=== PATIENT | male | born 1930 | race African-American/Black ===

== ENCOUNTER 2016-05-01 11:10 | Day surgery (SDC) | payer MEDICARE ==
[~2016-05-01] VITALS: Ht 177.8 cm; Wt 76.4 kg
[~2016-05-01 11:10] MED LIST: ACETAMINOPHEN325 MG PO; AMITIZA24 MCG PO; COREG 3.1253.125 MG PO; FEXOFENADINE HC60 MG PO; FLOMAX0.4 MG PO; LEVSIN/ANASP0.125 MG SL; PLAVIX75 MG PO; PRAVACHOL20 MG PO; PROSCAR5 MG PO; PROTONIX40 MG PO; ROBAXIN-750750 MG PO; TUMS500 MG PO
[2016-05-01 12:13] LABS: HEMATOCRIT 29.8 % (42.0-54.0); HEMOGLOBIN 9.3 g/dL (13.5-17.5); MCH 22.5 pg (26.0-34.0); MCHC 31.2 g/dL (31.0-37.0); MCV 72.2 fL (80.0-100.0); MEAN PLATELET VOLUME 11.1 fL (7.4-10.4); PLATELET COUNT 232 10x3/uL (130-400); RBC 4.13 10x6/uL (4.20-6.10); RDW 17.1 % (11.5-14.5); WBC 2.9 10x3/uL (4.8-10.8)
[2016-05-01 12:23] LABS: CALC OSMOLALITY 278 mosm/kg (275-300); CALCIUM 8.4 mg/dL (8.5-10.1); CARBON DIOXIDE 28.9 mmol/L (21.0-32.0); CHLORIDE - SERUM 103 mmol/L (98-107); GLUCOSE 95 mg/dL (74-106); POTASSIUM - SERUM 3.4 mmol/L (3.5-5.1); SODIUM 139 mmol/L (136-145); UREA NITROGEN 14 mg/dL (7-18); eGFR NON AFRICAN AMERICAN 75 mL/min (90-120)
[2016-05-01 12:49] LABS: EOSINOPHILS 4 % (0-7); LYMPHOCYTES 52 % (15-50); MONOCYTES 8 % (2-11); NEUTROPHILS 35 % (40-80); PLATELET ESTIMATE NORMAL
[2016-05-01 12:50] LABS: ANISOCYTOSIS OCC; ELLIPTOCYTES 1+; POIKILOCYTOSIS 1+; SCHISTOCYTES OCC; TARGET CELLS OCC
[2016-05-01] MEDS ORDERED: NORVASC5 MG PO (13:20)
[2016-05-01] MEDS ORDERED: K-TAB10 MEQ PO (13:20)
[2016-05-01] MEDS ORDERED: FUROSEMIDE20 MG PO (13:21)
[2016-05-01 13:28] VITALS: BP 152/80; Ht 177.8 cm; Wt 76.4 kg
--- NOTE | 2016-05-01 18:08 | NUR ---
1630 IV DC WITH CATHER TIP INTACT
--- NOTE | 2016-05-13 12:04 | OP ---
PATIENT NAME: LIT POSEY MEDICAL RECORD: [id number] :29 LOCATION:[facility] ADMISSION DATE: SURGEON: KIANA RADFORD DO DATE OF OPERATION: 05/01/2016 PROCEDURE: EGD. INDICATIONS FOR PROCEDURE: Abdominal pain, anemia, heartburn, nausea, and melena. MEDICATIONS: Per TIVA anesthesia. FINDINGS: Informed consent was given. The patient was made comfortable with propofol by slow IV push. Once reaching an adequate level of sedation, the patient was placed in his left lateral side. The endoscope was then advanced under direct visualization through the mouth to the second portion of the duodenum. The upper, middle and distal thirds of the esophagus appeared normal. The GE junction was widely patent and there was a minor break in the mucosal Z line indicating some reflux esophagitis. Upon entrance into the stomach, there was noted to be some ulcerations and some obvious gastritis. The entire stomach appeared extremely edematous. There were a few polyps, a few of which were ulcerated at the base. The main ulceration was noted right below the cardia upon entrance into the stomach and was approximately 2-3 cm in length x 1 cm wide. There were multiple random biopsies taken throughout the entire stomach as well as the ulcerated site and the ulcerated polyp. Total biopsies were approximately 10. The scope had difficulty advancing down to the antrum and the pylorus as the stomach was so edematous that it was difficult to insufflate for visualization. It was able to pass through the pylorus into the bulb and second portion of the duodenum which appeared somewhat atrophic, but fairly normal. The scope was then withdrawn from the patient. The patient tolerated the procedure well and there were no complications. IMPRESSION: Multiple abnormalities in the stomach involving gastric ulcers, polyps, which some are ulcerated at the base. There was also atrophic and edematous gastritis. He also had evidence of reflux esophagitis. PLAN AND RECOMMENDATIONS: 1. Await results of biopsy specimens. 2. Continue current medication regimen, which includes Nexium 40 mg daily. 3. We will give a script for Carafate suspension 1 gram per 10 mL taking 10 mL by mouth 4 times daily for 2 weeks. TRANSINT:[id number] Voice Confirmation ID: [id number] DOCUMENT ID: [id number] KIANA RADFORD DO at 1204 CC: [id number] DICTATION DATE: 05/01/16 1558 CLERICAL GRADER: 05/02/16 0010 [facility] 05/01/16 [facility] [address] [place] [address]
== END 2016-05-01 17:15 | disposition home or self-care (01) ==
LOC: D.OPS 11:10
PROVIDERS: Anesthesiology
DX: K92.2 Gastrointestinal hemorrhage, unspecified (principal); I10 Essential (primary) hypertension; K21.9 Gastro-esophageal reflux disease without esophagitis; M19.90 Unspecified osteoarthritis, unspecified site; K63.5 Polyp of colon

== ENCOUNTER 2017-08-10 14:12 | Emergency (ER) | payer MEDICARE ==
[~2017-08-10] VITALS: Ht 177.8 cm; Wt 68.2 kg
[~2017-08-10 14:12] MED LIST changes: +FUROSEMIDE20 MG PO; +K-TAB10 MEQ PO; +NORVASC5 MG PO
[2017-08-10 14:21] VITALS: BP 123/74; Ht 177.8 cm; Wt 68.2 kg
[2017-08-10 14:49] LABS: BASOPHILS 0.4 % (0-2); EOSINOPHILS 2.5 % (0-7); HEMATOCRIT 37.1 % (42.0-54.0); HEMOGLOBIN 11.7 g/dL (13.5-17.5); MCH 21.9 pg (26.0-34.0); MCHC 31.5 g/dL (31.0-37.0); MCV 69.5 fL (80.0-100.0); MONOCYTES 13.4 % (2-11); NEUTROPHILS 52.7 % (40-80); RBC 5.34 10x6/uL (4.20-6.10); RDW 19.8 % (11.5-14.5); WBC 4.8 10x3/uL (4.8-10.8)
[2017-08-10 14:51] LABS: PLATELET COUNT 324 10x3/uL (130-400)
[2017-08-10 15:04] LABS: ALBUMIN 2.9 g/dL (3.4-5.0); ALKALINE PHOSPHATASE 31 U/L (46-116); ALT (SGPT) 11 U/L (10-68); BILIRUBIN - TOTAL 0.53 mg/dL (0.2-1.3); CALC OSMOLALITY 276 mosm/kg (275-300); CALCIUM 9.1 mg/dL (8.5-10.1); CARBON DIOXIDE 32.4 mmol/L (21.0-32.0); CHLORIDE - SERUM 98 mmol/L (98-107); GLUCOSE 84 mg/dL (74-106); POTASSIUM - SERUM 3.2 mmol/L (3.5-5.1); PROTEIN - SERUM 7.2 g/dL (6.4-8.2); SODIUM 138 mmol/L (136-145); UREA NITROGEN 18 mg/dL (7-18); eGFR NON AFRICAN AMERICAN 75 mL/min (90-120)
[2017-08-10] MEDS ORDERED: TRANSDERM-SCO1 PATCH TRANSDERM (16:58)
[2017-08-10] MEDS ORDERED: CLARITIN 10 MG10 MG PO (16:58)
== END 2017-08-10 17:15 | disposition home or self-care (01) ==
LOC: D.ER 14:12
PROVIDERS: Family Medicine
DX: J30.9 Allergic rhinitis, unspecified (principal)

== ENCOUNTER 2017-08-12 15:47 | Inpatient (IN) | payer MEDICARE ==
[~2017-08-12] VITALS: Ht 177.8 cm; Wt 72.6 kg
--- NOTE | ~2017-08-12 | OP ---
PATIENT NAME: LIT POSEY MEDICAL RECORD: [id number] :29 LOCATION:D.M2 D.2134 ADMISSION DATE:08/14/17 SURGEON: VINCENT GUTIERREZ MD DATE OF OPERATION: 08/26/2017 PREOPERATIVE DIAGNOSES: 1. Gastric adenocarcinoma. 2. Esophageal dysphagia secondary to gastric adenocarcinoma. 3. GERD. 4. Debilitation. POSTOPERATIVE DIAGNOSES: 1. Gastric adenocarcinoma. 2. Esophageal dysphagia secondary to gastric adenocarcinoma. 3. GERD. 4. Debilitation. PROCEDURE: Laparoscopic J-tube placement. SURGEON: Vincent Gutierrez MD FUR SCRAPER: Malena Torres APRN REPORT OF PROCEDURE: The patient's abdomen was prepped and draped in sterile fashion. A Veress needle was inserted in the left upper quadrant and the abdomen was insufflated. A 5-mm Visiport trocar was inserted in the right lateral abdomen. The Veress needle was inspected and there was no sign of any injury to bowel or surrounding structures. Another 5-mm trocar was then placed just to the left of midline in the epigastrium and a final one was placed just to the right of midline in the suprapubic region. We inspected the patient's abdomen including liver, stomach, and abdominal wall. There were no signs of any metastatic lesions present throughout the liver. No signs of carcinomatosis. The liver itself appeared to be normal. The abdominal wall was smooth. The overlying bowel and colon appeared to be normal with no signs of any mesenteric metastatic disease. The stomach was firm and distended, consistent with known diagnosis of gastric adenocarcinoma. Most of this distention appeared to be on the upper half of the stomach. We then elevated the transverse colon and found the ligament of Treitz. We then followed the small bowel down to about 20-30 cm and a small opening was made in the small bowel. We then brought a 16-Mozambican gastrostomy tube through the anterior abdominal wall, placed it through the enterotomy, and insufflated the balloon. We then sutured down the small bowel around the opening in a pursestring fashion using a 3-0 silk. The enterotomy tube was then sutured down in a Witzel fashion using interrupted 3-0 silks times 2. We then pulled this up to the anterior abdominal wall and sutured the small bowel to the anterior abdominal wall with interrupted 3-0 silks times 3. The bowel appeared to lie appropriately up against the abdominal wall and we were able to flush this with water easily and there was no sign of any leakage. We then sutured the catheter down on the skin level using interrupted 3-0 nylons. At this point, the ports and insufflation were then removed. The skin incision sites were infused with a total of 10 mL of 0.25% Marcaine with epinephrine and then closed with subcutaneous 5-0 Monocryl. COMPLICATIONS: None. OPERATIVE REPORT [id number] LIT POSEY CONDITION: Stable. ANESTHESIA: General endotracheal and local. BLOOD LOSS: Minimal. TRANSINT:[id number] Voice Confirmation ID: [id number] DOCUMENT ID: [id number] VINCENT GUTIERREZ MD at 1418 CC: JIL BARNEY MD and KIANA RADFORD DO [id number] DICTATION DATE: 08/26/17 175 ETCH OPERATOR SEMICONDUCTOR WAFERS: 08/26/17 1809 ADM IN [facility] [address] [place] [address]
[~2017-08-12 15:47] MED LIST changes: +CLARITIN 10 MG10 MG PO; +TRANSDERM-SCO1 PATCH TRANSDERM
[2017-08-12 17:10] LABS: BASOPHILS 0.2 % (0-2); EOSINOPHILS 1.9 % (0-7); HEMATOCRIT 38.8 % (42.0-54.0); HEMOGLOBIN 12.3 g/dL (13.5-17.5); LYMPHOCYTES 31.6 % (15-50); MCH 22.1 pg (26.0-34.0); MCHC 31.7 g/dL (31.0-37.0); MCV 69.7 fL (80.0-100.0); MONOCYTES 12.5 % (2-11); NEUTROPHILS 53.8 % (40-80); PLATELET COUNT 339 10x3/uL (130-400); RBC 5.57 10x6/uL (4.20-6.10); RDW 19.5 % (11.5-14.5); WBC 5.1 10x3/uL (4.8-10.8)
[2017-08-12 17:31] LABS: ALBUMIN 2.9 g/dL (3.4-5.0); ALKALINE PHOSPHATASE 30 U/L (46-116); ALT (SGPT) 10 U/L (10-68); BILIRUBIN - TOTAL 0.65 mg/dL (0.2-1.3); CALC OSMOLALITY 275 mosm/kg (275-300); CARBON DIOXIDE 30.2 mmol/L (21.0-32.0); CHLORIDE - SERUM 95 mmol/L (98-107); GLUCOSE 89 mg/dL (74-106); POTASSIUM - SERUM 3.1 mmol/L (3.5-5.1); PROTEIN - SERUM 7.1 g/dL (6.4-8.2); SODIUM 137 mmol/L (136-145); UREA NITROGEN 22 mg/dL (7-18); eGFR NON AFRICAN AMERICAN 75 mL/min (90-120)
[2017-08-12 17:39] LABS: AMYLASE - SERUM 81 U/L (25-115); LIPASE 126 U/L (73-393)
[2017-08-12 17:43] LABS: TROPONIN-I < 0.017 ng/mL (0.000-0.060)
[2017-08-12] MEDS ORDERED: CARAFATE1 G/10 ML PO (21:48)
[2017-08-12] MEDS ORDERED: DEXILANT60 MG PO (21:54)
[2017-08-12] MEDS ORDERED: REGLAN5 MG PO (21:55)
[2017-08-12] MEDS ORDERED: MIRALAX17 GM PO (21:56)
[2017-08-12] MEDS ORDERED: ZANTAC300 MG PO (21:57)
[2017-08-13 04:00] VITALS: BP 109/77
[2017-08-13 04:34] VITALS: BP 112/73; BMI 23.0
[2017-08-13 06:46] LABS: BASOPHILS 0.2 % (0-2); CALC OSMOLALITY 282 mosm/kg (275-300); CALCIUM 8.1 mg/dL (8.5-10.1); CARBON DIOXIDE 27.7 mmol/L (21.0-32.0); CHLORIDE - SERUM 103 mmol/L (98-107); CREATININE - SERUM 0.9 mg/dL (0.6-1.3); EOSINOPHILS 3.1 % (0-7); GLUCOSE 79 mg/dL (74-106); HEMATOCRIT 31.7 % (42.0-54.0); HEMOGLOBIN 9.9 g/dL (13.5-17.5); LYMPHOCYTES 31.4 % (15-50); MCH 21.8 pg (26.0-34.0); MCHC 31.2 g/dL (31.0-37.0); MCV 69.7 fL (80.0-100.0); MONOCYTES 14.7 % (2-11); NEUTROPHILS 50.6 % (40-80); POTASSIUM - SERUM 3.1 mmol/L (3.5-5.1); RBC 4.55 10x6/uL (4.20-6.10); RDW 19.5 % (11.5-14.5); SODIUM 141 mmol/L (136-145); UREA NITROGEN 20 mg/dL (7-18); WBC 4.1 10x3/uL (4.8-10.8); eGFR NON AFRICAN AMERICAN 84 mL/min (90-120)
[2017-08-13 06:47] LABS: PLATELET COUNT 267 10x3/uL (130-400)
[2017-08-13 08:16] VITALS: BP 113/68
[2017-08-13 11:57] VITALS: BP 118/75
[2017-08-13 15:21] VITALS: BMI 22.9
[2017-08-13 15:37] VITALS: BP 118/69
[2017-08-13 20:10] VITALS: BP 147/81
[2017-08-13 21:36] LABS: APPEARANCE CLEAR (CLEAR); BILIRUBIN NEGATIVE (NEGATIVE); COLOR DK YELLOW (YELLOW); GLUCOSE NEGATIVE (NEGATIVE); KETONE MODERATE mg/dL (NEGATIVE); NITRITE NEGATIVE (NEGATIVE); PROTEIN NEGATIVE (NEGATIVE); SPECIFIC GRAVITY 1.025 (1.005-1.020); UROBILINOGEN NORMAL (NORMAL)
[2017-08-13 21:39] LABS: BACTERIA MODERATE /hpf (NONE SEEN); EPITHELIAL CELLS OCC /hpf (0-5); HYALINE CAST RARE /lpf (NONE SEEN); MUCUS >1+ /lpf (NONE SEEN); WHITE CELLS - URINE 0-5 /hpf (0-5)
[2017-08-14 00:37] VITALS: BP 112/64
[2017-08-14 04:50] VITALS: BP 138/80
[2017-08-14 06:48] LABS: BASOPHILS 0.8 % (0-2); HEMATOCRIT 31.4 % (42.0-54.0); HEMOGLOBIN 9.7 g/dL (13.5-17.5); LYMPHOCYTES 34.3 % (15-50); MCH 21.6 pg (26.0-34.0); MCHC 30.9 g/dL (31.0-37.0); MCV 69.8 fL (80.0-100.0); MONOCYTES 15.3 % (2-11); NEUTROPHILS 45.6 % (40-80)
[2017-08-14 06:51] LABS: PLATELET COUNT 213 10x3/uL (130-400)
[2017-08-14 07:22] LABS: ALBUMIN 2.4 g/dL (3.4-5.0); ALKALINE PHOSPHATASE 25 U/L (46-116); ALT (SGPT) 10 U/L (10-68); BILIRUBIN - TOTAL 0.57 mg/dL (0.2-1.3); CALCIUM 8.3 mg/dL (8.5-10.1); CHLORIDE - SERUM 107 mmol/L (98-107); CREATININE - SERUM 0.8 mg/dL (0.6-1.3); GLUCOSE 74 mg/dL (74-106); POTASSIUM - SERUM 3.7 mmol/L (3.5-5.1); PROTEIN - SERUM 5.8 g/dL (6.4-8.2); SODIUM 144 mmol/L (136-145); eGFR NON AFRICAN AMERICAN > 90 mL/min (90-120)
[2017-08-14 07:24] LABS: CALC OSMOLALITY 286 mosm/kg (275-300); UREA NITROGEN 14 mg/dL (7-18)
[2017-08-14 08:07] VITALS: BP 134/79
[2017-08-14 15:44] VITALS: BP 157/87
[2017-08-14 21:24] VITALS: BP 145/87
[2017-08-15 01:47] VITALS: BP 136/83
[2017-08-15 05:16] LABS: BASOPHILS 1.2 % (0-2); EOSINOPHILS 5.7 % (0-7); HEMATOCRIT 31.8 % (42.0-54.0); HEMOGLOBIN 9.7 g/dL (13.5-17.5); LYMPHOCYTES 32.1 % (15-50); MCH 21.7 pg (26.0-34.0); MCHC 30.5 g/dL (31.0-37.0); MCV 71.1 fL (80.0-100.0); RBC 4.47 10x6/uL (4.20-6.10); RDW 20.1 % (11.5-14.5); WBC 3.4 10x3/uL (4.8-10.8)
[2017-08-15 05:22] VITALS: BP 160/87
[2017-08-15 05:24] LABS: PLATELET COUNT 262 10x3/uL (130-400)
[2017-08-15 05:45] LABS: ALBUMIN 2.4 g/dL (3.4-5.0); ALKALINE PHOSPHATASE 23 U/L (46-116); BILIRUBIN - TOTAL 0.55 mg/dL (0.2-1.3); CALCIUM 7.9 mg/dL (8.5-10.1); CHLORIDE - SERUM 107 mmol/L (98-107); CREATININE - SERUM 0.7 mg/dL (0.6-1.3); POTASSIUM - SERUM 3.8 mmol/L (3.5-5.1); PROTEIN - SERUM 5.5 g/dL (6.4-8.2); SODIUM 145 mmol/L (136-145); eGFR NON AFRICAN AMERICAN > 90 mL/min (90-120)
[2017-08-15 05:46] LABS: ALT (SGPT) 7 U/L (10-68); CALC OSMOLALITY 285 mosm/kg (275-300); GLUCOSE 65 mg/dL (74-106); UREA NITROGEN 9 mg/dL (7-18)
[2017-08-15 08:25] VITALS: BP 131/56
[2017-08-15 11:02] VITALS: BP 136/80
[2017-08-15 16:13] VITALS: BP 135/76
[2017-08-15 20:00] VITALS: BP 148/79
[2017-08-16 04:00] VITALS: BP 123/69
[2017-08-16 07:32] LABS: BASOPHILS 0.1 % (0-2); EOSINOPHILS 0.3 % (0-7); HEMATOCRIT 30.8 % (42.0-54.0); HEMOGLOBIN 9.4 g/dL (13.5-17.5); IMMATURE GRANULOCYTES 0.4 % (0-5); LYMPHOCYTES 7.5 % (15-50); MCH 21.5 pg (26.0-34.0); MCHC 30.5 g/dL (31.0-37.0); MCV 70.5 fL (80.0-100.0); MONOCYTES 6.1 % (2-11); NEUTROPHILS 85.6 % (40-80); PLATELET COUNT 250 10x3/uL (130-400); RBC 4.37 10x6/uL (4.20-6.10); RDW 20.3 % (11.5-14.5)
[2017-08-16 07:54] LABS: WBC 14.5 10x3/uL (4.8-10.8)
[2017-08-16 07:56] LABS: ALKALINE PHOSPHATASE 24 U/L (46-116); ALT (SGPT) 6 U/L (10-68); BILIRUBIN - TOTAL 0.58 mg/dL (0.2-1.3); CALC OSMOLALITY 278 mosm/kg (275-300); CALCIUM 8.2 mg/dL (8.5-10.1); CARBON DIOXIDE 23.6 mmol/L (21.0-32.0); CHLORIDE - SERUM 107 mmol/L (98-107); CREATININE - SERUM 0.7 mg/dL (0.6-1.3); GLUCOSE 72 mg/dL (74-106); POTASSIUM - SERUM 3.8 mmol/L (3.5-5.1); PROTEIN - SERUM 5.3 g/dL (6.4-8.2); SODIUM 141 mmol/L (136-145); UREA NITROGEN 9 mg/dL (7-18); eGFR NON AFRICAN AMERICAN > 90 mL/min (90-120)
[2017-08-16 08:00] VITALS: BP 126/70
[2017-08-16 08:45] VITALS: BP 114/68
[2017-08-16 11:12] VITALS: BP 107/60
[2017-08-17 04:00] VITALS: BP 153/85
[2017-08-17 07:00] LABS: BASOPHILS 0.2 % (0-2); EOSINOPHILS 1.5 % (0-7); HEMOGLOBIN 10.1 g/dL (13.5-17.5); IMMATURE GRANULOCYTES 0.5 % (0-5); LYMPHOCYTES 8.4 % (15-50); MCH 22.1 pg (26.0-34.0); MCHC 31.6 g/dL (31.0-37.0); MCV 69.9 fL (80.0-100.0); MONOCYTES 8.6 % (2-11); NEUTROPHILS 80.8 % (40-80); RBC 4.58 10x6/uL (4.20-6.10); RDW 20.3 % (11.5-14.5)
[2017-08-17 07:03] LABS: PLATELET COUNT 182 10x3/uL (130-400); WBC 8.8 10x3/uL (4.8-10.8)
[2017-08-17 07:54] LABS: ALKALINE PHOSPHATASE 28 U/L (46-116); BILIRUBIN - TOTAL 0.47 mg/dL (0.2-1.3); CHLORIDE - SERUM 105 mmol/L (98-107); CREATININE - SERUM 0.8 mg/dL (0.6-1.3); POTASSIUM - SERUM 3.9 mmol/L (3.5-5.1); PROTEIN - SERUM 5.4 g/dL (6.4-8.2); SODIUM 139 mmol/L (136-145); UREA NITROGEN 11 mg/dL (7-18); eGFR NON AFRICAN AMERICAN > 90 mL/min (90-120)
[2017-08-17 07:55] LABS: ALT (SGPT) 8 U/L (10-68); CALC OSMOLALITY 278 mosm/kg (275-300); CARBON DIOXIDE 29.6 mmol/L (21.0-32.0); GLUCOSE 129 mg/dL (74-106)
[2017-08-17 08:35] VITALS: BP 141/82
[2017-08-17 11:55] VITALS: BP 125/77
[2017-08-17 15:47] VITALS: BP 132/76
[2017-08-17 20:00] VITALS: BP 130/78
[2017-08-18 04:00] VITALS: BP 132/77; BP 177/87
[2017-08-18 06:35] LABS: BASOPHILS 0.2 % (0-2); EOSINOPHILS 2.1 % (0-7); HEMATOCRIT 32.9 % (42.0-54.0); HEMOGLOBIN 10.3 g/dL (13.5-17.5); IMMATURE GRANULOCYTES 0.2 % (0-5); LYMPHOCYTES 19.5 % (15-50); MCH 21.8 pg (26.0-34.0); MCHC 31.3 g/dL (31.0-37.0); MCV 69.7 fL (80.0-100.0); MONOCYTES 14.3 % (2-11); NEUTROPHILS 63.7 % (40-80); RBC 4.72 10x6/uL (4.20-6.10)
[2017-08-18 06:39] LABS: PLATELET COUNT 234 10x3/uL (130-400); WBC 5.7 10x3/uL (4.8-10.8)
[2017-08-18 07:22] LABS: ALBUMIN 1.9 g/dL (3.4-5.0); ALKALINE PHOSPHATASE 28 U/L (46-116); ALT (SGPT) 8 U/L (10-68); BILIRUBIN - TOTAL 0.41 mg/dL (0.2-1.3); CALC OSMOLALITY 274 mosm/kg (275-300); CALCIUM 7.8 mg/dL (8.5-10.1); CARBON DIOXIDE 30.5 mmol/L (21.0-32.0); CHLORIDE - SERUM 102 mmol/L (98-107); CREATININE - SERUM 0.7 mg/dL (0.6-1.3); GLUCOSE 118 mg/dL (74-106); POTASSIUM - SERUM 3.7 mmol/L (3.5-5.1); PROTEIN - SERUM 5.4 g/dL (6.4-8.2); SODIUM 137 mmol/L (136-145); UREA NITROGEN 12 mg/dL (7-18); eGFR NON AFRICAN AMERICAN > 90 mL/min (90-120)
[2017-08-18 08:29] VITALS: BP 135/81
[2017-08-18 11:45] VITALS: BP 117/74
[2017-08-18 15:49] VITALS: BP 106/69
[2017-08-18 20:00] VITALS: BP 127/80
[2017-08-19] VITALS: BP 121/70
[2017-08-19 04:00] VITALS: BP 131/75
[2017-08-19 09:06] VITALS: BP 127/74
[2017-08-19 13:26] VITALS: BP 137/79
[2017-08-19 17:31] VITALS: BP 136/73
[2017-08-19 21:05] VITALS: BP 150/72
[2017-08-20 01:36] VITALS: BP 113/69
[2017-08-20 06:09] VITALS: BP 129/68
[2017-08-20 06:31] LABS: HEMOGLOBIN 10.6 g/dL (13.5-17.5); LYMPHOCYTES 28.5 % (15-50); MCH 22.5 pg (26.0-34.0); MCHC 31.2 g/dL (31.0-37.0); NEUTROPHILS 50.5 % (40-80); RBC 4.72 10x6/uL (4.20-6.10); RDW 22.7 % (11.5-14.5)
[2017-08-20 06:33] LABS: PLATELET COUNT 146 10x3/uL (130-400); WBC 3.3 10x3/uL (4.8-10.8)
[2017-08-20 06:47] LABS: CALC OSMOLALITY 269 mosm/kg (275-300); CALCIUM 7.6 mg/dL (8.5-10.1); CHLORIDE - SERUM 100 mmol/L (98-107); CREATININE - SERUM 0.6 mg/dL (0.6-1.3); GLUCOSE 102 mg/dL (74-106); POTASSIUM - SERUM 3.7 mmol/L (3.5-5.1); SODIUM 135 mmol/L (136-145); UREA NITROGEN 13 mg/dL (7-18); eGFR NON AFRICAN AMERICAN > 90 mL/min (90-120)
[2017-08-20 09:08] VITALS: BP 136/74
[2017-08-20 12:38] VITALS: BP 138/73
[2017-08-20 13:47] VITALS: Ht 177.8 cm; Wt 72.6 kg
[2017-08-20 16:46] VITALS: BP 142/74
[2017-08-20 20:41] VITALS: BP 142/90
[2017-08-21 06:04] VITALS: BP 145/82
[2017-08-21 06:51] LABS: HEMATOCRIT 32.2 % (42.0-54.0); MCH 21.6 pg (26.0-34.0); MCHC 31.1 g/dL (31.0-37.0); RBC 4.62 10x6/uL (4.20-6.10); WBC 3.9 10x3/uL (4.8-10.8)
[2017-08-21 07:00] LABS: MCV 69.7 fL (80.0-100.0); PLATELET COUNT 274 10x3/uL (130-400)
[2017-08-21 07:08] LABS: % SATURATION 13 % (15-55); IRON 25 ug/dl (35-150); TOTAL IRON BIND CAPACITY 191 ug/dl (260-445); UNSAT IRON BIND CAPACITY 166 ug/dl (150-375)
[2017-08-21 07:19] LABS: CALC OSMOLALITY 270 mosm/kg (275-300); CALCIUM 7.9 mg/dL (8.5-10.1); CHLORIDE - SERUM 99 mmol/L (98-107); GLUCOSE 109 mg/dL (74-106); SODIUM 135 mmol/L (136-145); UREA NITROGEN 12 mg/dL (7-18)
[2017-08-21 07:23] LABS: CREATININE - SERUM 0.8 mg/dL (0.6-1.3); POTASSIUM - SERUM 4.5 mmol/L (3.5-5.1); eGFR NON AFRICAN AMERICAN > 90 mL/min (90-120)
[2017-08-21 07:53] VITALS: BP 141/83
[2017-08-21 07:55] LABS: EOSINOPHILS 3 % (0-7); LYMPHOCYTES 14 % (15-50); MONOCYTES 14 % (2-11); NEUTROPHILS 60 % (40-80)
[2017-08-21 07:56] LABS: PLATELET ESTIMATE NORMAL; PLATELET MORPHOLOGY GIANT PLTS PRESENT
[2017-08-21 11:00] VITALS: BP 132/74
[2017-08-21 16:30] VITALS: BP 143/78
[2017-08-21 20:35] VITALS: BP 139/81
[2017-08-22 00:21] VITALS: BP 142/76
[2017-08-22 05:07] VITALS: BP 149/66
[2017-08-22 06:04] LABS: BASOPHILS 0.1 % (0-2); EOSINOPHILS 0.1 % (0-7); HEMATOCRIT 31.7 % (42.0-54.0); IMMATURE GRANULOCYTES 0.4 % (0-5); LYMPHOCYTES 5.6 % (15-50); MCH 21.9 pg (26.0-34.0); MCHC 31.5 g/dL (31.0-37.0); MCV 69.4 fL (80.0-100.0); MONOCYTES 7.7 % (2-11); NEUTROPHILS 86.1 % (40-80); PLATELET COUNT 262 10x3/uL (130-400); RBC 4.57 10x6/uL (4.20-6.10); RDW 19.8 % (11.5-14.5)
[2017-08-22 06:13] LABS: WBC 13.6 10x3/uL (4.8-10.8)
[2017-08-22 06:29] LABS: CALC OSMOLALITY 265 mosm/kg (275-300); CHLORIDE - SERUM 97 mmol/L (98-107); CREATININE - SERUM 0.8 mg/dL (0.6-1.3); GLUCOSE 109 mg/dL (74-106); POTASSIUM - SERUM 4.1 mmol/L (3.5-5.1); SODIUM 133 mmol/L (136-145); UREA NITROGEN 11 mg/dL (7-18); eGFR NON AFRICAN AMERICAN > 90 mL/min (90-120)
[2017-08-22 08:45] VITALS: BP 163/89
[2017-08-22 12:10] VITALS: BP 142/76
[2017-08-22 15:54] VITALS: BP 141/75
[2017-08-22 21:43] VITALS: BP 148/79
[2017-08-23 03:03] VITALS: BP 158/83
[2017-08-23 06:01] VITALS: BP 142/83
[2017-08-23 08:13] VITALS: BP 157/79
[2017-08-23 08:14] LABS: BASOPHILS 0.1 % (0-2); EOSINOPHILS 0.1 % (0-7); HEMATOCRIT 31.3 % (42.0-54.0); HEMOGLOBIN 10.1 g/dL (13.5-17.5); IMMATURE GRANULOCYTES 0.5 % (0-5); LYMPHOCYTES 5.7 % (15-50); MCH 22.1 pg (26.0-34.0); MCHC 32.3 g/dL (31.0-37.0); MCV 68.5 fL (80.0-100.0); MONOCYTES 11.3 % (2-11); NEUTROPHILS 82.3 % (40-80); PLATELET COUNT 286 10x3/uL (130-400); RBC 4.57 10x6/uL (4.20-6.10); RDW 19.9 % (11.5-14.5)
[2017-08-23 08:15] LABS: WBC 8.7 10x3/uL (4.8-10.8)
[2017-08-23 08:42] LABS: CALC OSMOLALITY 265 mosm/kg (275-300); CALCIUM 8.4 mg/dL (8.5-10.1); CARBON DIOXIDE 31.9 mmol/L (21.0-32.0); CHLORIDE - SERUM 96 mmol/L (98-107); CREATININE - SERUM 0.8 mg/dL (0.6-1.3); GLUCOSE 118 mg/dL (74-106); SODIUM 132 mmol/L (136-145); UREA NITROGEN 13 mg/dL (7-18); eGFR NON AFRICAN AMERICAN > 90 mL/min (90-120)
[2017-08-23 08:47] LABS: POTASSIUM - SERUM 3.2 mmol/L (3.5-5.1)
[2017-08-23 20:30] VITALS: BP 152/85
[2017-08-24 00:30] VITALS: BP 144/74
[2017-08-24 04:30] VITALS: BP 148/77
[2017-08-24 05:31] LABS: BASOPHILS 0.1 % (0-2); EOSINOPHILS 0.1 % (0-7); HEMATOCRIT 32.6 % (42.0-54.0); HEMOGLOBIN 10.7 g/dL (13.5-17.5); IMMATURE GRANULOCYTES 0.4 % (0-5); LYMPHOCYTES 7.1 % (15-50); MCH 22.4 pg (26.0-34.0); MCHC 32.8 g/dL (31.0-37.0); MCV 68.3 fL (80.0-100.0); MONOCYTES 8.9 % (2-11); NEUTROPHILS 83.4 % (40-80); PLATELET COUNT 309 10x3/uL (130-400); RBC 4.77 10x6/uL (4.20-6.10)
[2017-08-24 05:37] LABS: WBC 11.6 10x3/uL (4.8-10.8)
[2017-08-24 05:55] LABS: CALC OSMOLALITY 265 mosm/kg (275-300); CALCIUM 8.4 mg/dL (8.5-10.1); CARBON DIOXIDE 31.2 mmol/L (21.0-32.0); CHLORIDE - SERUM 95 mmol/L (98-107); CREATININE - SERUM 0.7 mg/dL (0.6-1.3); GLUCOSE 106 mg/dL (74-106); POTASSIUM - SERUM 3.2 mmol/L (3.5-5.1); SODIUM 133 mmol/L (136-145); UREA NITROGEN 12 mg/dL (7-18); eGFR NON AFRICAN AMERICAN > 90 mL/min (90-120)
[2017-08-24 09:13] VITALS: BP 145/79
[2017-08-24 12:02] VITALS: BP 172/89
[2017-08-24 15:42] VITALS: BP 142/79
[2017-08-25 00:02] VITALS: BP 142/73
[2017-08-25 06:07] VITALS: BP 127/87
[2017-08-25 11:23] VITALS: BP 154/81
[2017-08-25 15:09] VITALS: BP 149/79
[2017-08-25 20:52] VITALS: BP 171/79
[2017-08-26 01:42] VITALS: BP 148/83
[2017-08-26 05:48] LABS: BASOPHILS 0.1 % (0-2); EOSINOPHILS 0.7 % (0-7); HEMATOCRIT 31.4 % (42.0-54.0); IMMATURE GRANULOCYTES 0.3 % (0-5); LYMPHOCYTES 15.3 % (15-50); MCH 21.7 pg (26.0-34.0); MCHC 31.8 g/dL (31.0-37.0); MCV 68.3 fL (80.0-100.0); MONOCYTES 11.5 % (2-11); NEUTROPHILS 72.1 % (40-80); PLATELET COUNT 328 10x3/uL (130-400); WBC 6.7 10x3/uL (4.8-10.8)
[2017-08-26 06:10] LABS: CALC OSMOLALITY 267 mosm/kg (275-300); CALCIUM 8.1 mg/dL (8.5-10.1); CARBON DIOXIDE 31.3 mmol/L (21.0-32.0); CHLORIDE - SERUM 97 mmol/L (98-107); CREATININE - SERUM 0.7 mg/dL (0.6-1.3); GLUCOSE 78 mg/dL (74-106); POTASSIUM - SERUM 3.3 mmol/L (3.5-5.1); SODIUM 135 mmol/L (136-145); UREA NITROGEN 11 mg/dL (7-18); eGFR NON AFRICAN AMERICAN > 90 mL/min (90-120)
[2017-08-26 06:13] VITALS: BP 151/79
[2017-08-26 08:17] VITALS: BP 143/72
[2017-08-26 14:10] VITALS: BP 142/90
[2017-08-26 16:12] VITALS: BP 142/90
[2017-08-26 20:25] VITALS: BP 133/70
[2017-08-27 01:16] VITALS: BP 156/80
[2017-08-27 04:30] VITALS: BP 131/73
[2017-08-27 08:01] VITALS: BP 136/70
[2017-08-27 09:17] LABS: OVA + PARASITE EXAM Final report (())
[2017-08-27 11:21] VITALS: BP 139/79
[2017-08-27 15:33] VITALS: BP 136/83
[2017-08-27 20:57] VITALS: BP 119/86
[2017-08-28 01:26] VITALS: BP 131/84
[2017-08-28 04:00] VITALS: BP 128/75
[2017-08-28 08:30] VITALS: BP 135/76
[2017-08-28 12:01] VITALS: BP 137/87
[2017-08-28 16:14] VITALS: BP 154/95
[2017-08-28 20:00] VITALS: BP 145/97
[2017-08-29] VITALS: BP 155/87
[2017-08-29 04:00] VITALS: BP 146/84
[2017-08-29 07:59] VITALS: BP 119/77
[2017-08-29 11:06] VITALS: BP 123/72
[2017-08-29 15:06] VITALS: BP 124/78
[2017-08-29 20:00] VITALS: BP 132/89
[2017-08-30] VITALS: BP 155/87
[2017-08-30 04:00] VITALS: BP 159/90
[2017-08-30 08:43] VITALS: BP 132/72
[2017-08-30 11:19] VITALS: BP 138/73
[2017-08-30 15:02] LABS: BASOPHILS 0.3 % (0-2); EOSINOPHILS 0.3 % (0-7); HEMATOCRIT 27.9 % (42.0-54.0); HEMOGLOBIN 9.3 g/dL (13.5-17.5); IMMATURE GRANULOCYTES 0.5 % (0-5); LYMPHOCYTES 9.5 % (15-50); MCH 22.5 pg (26.0-34.0); MCHC 33.3 g/dL (31.0-37.0); MCV 67.4 fL (80.0-100.0); MONOCYTES 12.8 % (2-11); NEUTROPHILS 76.6 % (40-80); PLATELET COUNT 315 10x3/uL (130-400); RBC 4.14 10x6/uL (4.20-6.10); RDW 19.7 % (11.5-14.5); WBC 6.6 10x3/uL (4.8-10.8)
[2017-08-30 15:27] VITALS: BP 141/81
[2017-08-30 15:40] LABS: ALBUMIN 1.9 g/dL (3.4-5.0); ALKALINE PHOSPHATASE 38 U/L (46-116); ALT (SGPT) 18 U/L (10-68); BILIRUBIN - TOTAL 0.59 mg/dL (0.2-1.3); CALC OSMOLALITY 265 mosm/kg (275-300); CALCIUM 7.8 mg/dL (8.5-10.1); CARBON DIOXIDE 33.5 mmol/L (21.0-32.0); CHLORIDE - SERUM 96 mmol/L (98-107); CREATININE - SERUM 0.7 mg/dL (0.6-1.3); GLUCOSE 103 mg/dL (74-106); PROTEIN - SERUM 5.3 g/dL (6.4-8.2); SODIUM 132 mmol/L (136-145); UREA NITROGEN 16 mg/dL (7-18); eGFR NON AFRICAN AMERICAN > 90 mL/min (90-120)
[2017-08-30 16:17] LABS: APPEARANCE SLT CLOUDY (CLEAR); COLOR AMBER (YELLOW)
[2017-08-30 16:18] LABS: BILIRUBIN 1+ (NEGATIVE); GLUCOSE NEGATIVE (NEGATIVE); KETONE NEGATIVE (NEGATIVE); NITRITE NEGATIVE (NEGATIVE); PROTEIN TRACE mg/dL (NEGATIVE); WHITE CELLS - URINE 0-5 /hpf (0-5)
[2017-08-30 16:19] LABS: BACTERIA MODERATE /hpf (NONE SEEN)
[2017-08-30 16:20] LABS: MUCUS <1+ /lpf (NONE SEEN)
[2017-08-30 20:00] VITALS: BP 134/81
[2017-08-31 04:00] VITALS: BP 121/84
[2017-08-31 08:26] LABS: BASOPHILS 0.3 % (0-2); EOSINOPHILS 0.5 % (0-7); HEMATOCRIT 29.7 % (42.0-54.0); HEMOGLOBIN 9.9 g/dL (13.5-17.5); IMMATURE GRANULOCYTES 0.8 % (0-5); LYMPHOCYTES 6.2 % (15-50); MCH 22.4 pg (26.0-34.0); MCHC 33.3 g/dL (31.0-37.0); MCV 67.2 fL (80.0-100.0); MONOCYTES 1.3 % (2-11); NEUTROPHILS 90.9 % (40-80); PLATELET COUNT 230 10x3/uL (130-400); RBC 4.42 10x6/uL (4.20-6.10); RDW 19.9 % (11.5-14.5); WBC 3.9 10x3/uL (4.8-10.8)
[2017-08-31 08:38] LABS: ALBUMIN 1.8 g/dL (3.4-5.0); ALKALINE PHOSPHATASE 40 U/L (46-116); ALT (SGPT) 20 U/L (10-68); BILIRUBIN - TOTAL 0.78 mg/dL (0.2-1.3); CALC OSMOLALITY 261 mosm/kg (275-300); CALCIUM 7.7 mg/dL (8.5-10.1); CARBON DIOXIDE 30.3 mmol/L (21.0-32.0); CHLORIDE - SERUM 95 mmol/L (98-107); GLUCOSE 97 mg/dL (74-106); PROTEIN - SERUM 5.8 g/dL (6.4-8.2); SODIUM 130 mmol/L (136-145); UREA NITROGEN 15 mg/dL (7-18)
[2017-08-31 08:41] LABS: CREATININE - SERUM 0.9 mg/dL (0.6-1.3); POTASSIUM - SERUM 3.2 mmol/L (3.5-5.1); eGFR NON AFRICAN AMERICAN 84 mL/min (90-120)
[2017-08-31 08:47] VITALS: BP 154/66
[2017-08-31 17:26] VITALS: BP 99/58
[2017-08-31 20:00] VITALS: BP 106/62
[2017-09-01] VITALS: BP 70/40
[2017-09-01 03:43] LABS: BASOPHILS 0.1 % (0-2); EOSINOPHILS 0.1 % (0-7); HEMOGLOBIN 8.4 g/dL (13.5-17.5); IMMATURE GRANULOCYTES 0.3 % (0-5); LYMPHOCYTES 4.9 % (15-50); MCH 22.2 pg (26.0-34.0); MCHC 33.6 g/dL (31.0-37.0); MCV 66.1 fL (80.0-100.0); MONOCYTES 3.9 % (2-11); NEUTROPHILS 90.7 % (40-80); PLATELET COUNT 171 10x3/uL (130-400); RBC 3.78 10x6/uL (4.20-6.10); RDW 20.3 % (11.5-14.5)
[2017-09-01 03:44] LABS: ANION GAP 12.8 mmol/L (8-16); BILIRUBIN - TOTAL 1.08 mg/dL (0.2-1.3); CARBON DIOXIDE 23.2 mmol/L (21.0-32.0); PROTEIN - SERUM 4.6 g/dL (6.4-8.2)
[2017-09-01 03:46] LABS: ALBUMIN 1.3 g/dL (3.4-5.0); CALCIUM 6.9 mg/dL (8.5-10.1); CREATININE - SERUM 1.4 mg/dL (0.6-1.3)
[2017-09-01 08:33] VITALS: BP 75/45
[2017-09-01 11:43] VITALS: BP 68/39
== END 2017-09-01 15:49 | disposition home health service (06) | DRG 344 ==
LOC: D.ER 15:47 → D.M2 20:40 → OBSVTIME 08-14 12:00 → D.M2 08-14 14:13
PROVIDERS: Family Medicine; Internal Medicine Gastroenterology; Internal Medicine Hematology & Oncology; Internal Medicine Nephrology
PROC: 0DB68ZX Excision of Stomach, Via Natural or Artificial Opening Endoscopic, Diagnostic (ICD-10-PCS; 2017-08-14)
PROC: 0D748ZZ Dilation of Esophagogastric Junction, Via Natural or Artificial Opening Endoscopic (ICD-10-PCS; 2017-08-14)
PROC: 0DB48ZX Excision of Esophagogastric Junction, Via Natural or Artificial Opening Endoscopic, Diagnostic (ICD-10-PCS; principal; 2017-08-14 11:30)
PROC: 0D758DZ Dilation of Esophagus with Intraluminal Device, Via Natural or Artificial Opening Endoscopic (ICD-10-PCS; 2017-08-21)
PROC: 0D9 Gastrointestinal System, Drainage (ICD-10-PCS; 2017-08-26)
DX: C16.0 Malignant neoplasm of cardia (principal); E43 Unspecified severe protein-calorie malnutrition; N13.8 Other obstructive and reflux uropathy; R13.10 Dysphagia, unspecified; E87.6 Hypokalemia; K21.9 Gastro-esophageal reflux disease without esophagitis; I10 Essential (primary) hypertension; Z66 Do not resuscitate; J44.9 Chronic obstructive pulmonary disease, unspecified; N40.1 Benign prostatic hyperplasia with lower urinary tract symptoms; K25.9 Gastric ulcer, unspecified as acute or chronic, without hemorrhage or perforation; D50.9 Iron deficiency anemia, unspecified; E88.09 Other disorders of plasma-protein metabolism, not elsewhere classified; J30.9 Allergic rhinitis, unspecified; E86.0 Dehydration; Z68.22 Body mass index [BMI] 22.0-22.9, adult